=== PATIENT | female | born 1945 | race Caucasian/White ===

== ENCOUNTER 2018-09-15 15:08 | Emergency (ER) | payer MEDICARE, SELFPAY ==
[2018-09-15 15:13] VITALS: BP 112/64; PULSE 85; RESP 16; TEMP 37.1; O2SAT 98
--- NOTE | 2018-09-15 15:29 | DI.US_ITS ---
SYMPTOM/DIAGNOSIS: SWELLING, CYANOSIS, PAIN LEFT LOWER EXTREMITY ULTRASOUND: There is hypoechoic thrombus seen within the left common femoral vein and popliteal vein. There is also echogenic thrombus seen in the peroneal vein of the left lower extremity. There is extension of thrombus into the proximal mid greater saphenous vein. IMPRESSION: Extensive deep venous thrombosis of the left lower extremity. Superficial thrombophlebitis.
--- NOTE | 2018-09-15 15:31 | ED.GENADUL_ITS ---
Discharge Plan Disposition Patient Disposition: [facility] [place] Condition: Improving Discharge Details Chief Complaint: Nk/Back Pain Clinical Impression: DVT of lower limb, acute Primary Care Provider: Katerina Ty ED Provider: Faheem Brooks Home Meds and New Rx's Prescriptions: No Action diltiazem HCl 180 MG tablet extended release 24 hr 180 mg PO DAILY RF: 0 ascorbic acid (vitamin C) [Vitamin C] 1,000 MG tablet 1,000 mg PO DAILY RF: 0 vitamin E 200 UNIT capsule 200 unit PO DAILY RF: 0 Van's wort 300 MG capsule 300 mg PO DAILY RF: 0 ginkgo biloba 120 MG tablet 120 mg PO DAILY RF: 0 omega-3 fatty acids-fish oil [Fish Oil] 1 EACH capsule 1 ea PO DAILY RF: 0 ibuprofen 800 MG tablet 800 mg PO Q6H PRN PRNQty: 20 RF: 0 Medical Decision Making 72-year-old female presents from home. She states that she got out out of her recliner after a nap yesterday and while flexing at the waist, had the abrupt onset of severe left low back pain that radiated to her buttock, groin, leg. She states that she took ibuprofen and Tylenol for this with some improvement. She states that today she noticed that her left lower extremity had become swollen/edematous/cyanotic. Her back pain is improving. She does not have chest pain or shortness of breath. Her vital signs are normal. Her exam is most notable for asymmetrical edema and cyanosis of the left lower extremity. Arterial pulses are intact on exam. 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 This does reveal massive DVT of the left lower extremity from the common femoral vein through the popliteal. Arterial flow is intact. The patient will note that she had rapidly progressive lower extremity swelling over the course of the day from waist to knee this morning and progressively through the calf this afternoon. Screening labs including coags, type and screen obtained. Heparin initiated. Patient did have some improvement in her cyanosis following heparin bolus. Case discussed with on-call vascular sugery at [facility], Dr Pina, and patient accepted in transfer. Lab Data Lab results reviewed: Yes I reviewed the patient's lab results. Laboratory Results - last 24 hr 09/15/18 09/15/18 09/15/18 16:30 16:30 16:30 WBC 9.79 RBC 4.78 Hgb 14.1 Hct 43.5 MCV 91.0 MCH 29.5 MCHC 32.4 RDW 14.7 H Plt Count 214 MPV 9.6 Immature Gran % 0.6 Neutrophils % 74.8 Lymphocytes % 11.7 Monocytes % 12.6 Eosinophils % 0.1 Basophils % 0.2 Absolute Neutrophils 7.32 H Absolute Lymphocytes 1.15 L Absolute Monocytes 1.23 H Absolute Eosinophils 0.01 Absolute Basophils 0.02 PT 9.5 INR 1.0 APTT 24.9 Sodium 134 L Potassium 3.7 Chloride 98 Carbon Dioxide 28.9 Anion Gap 7.1 BUN 15 Creatinine 0.97 Estimated GFR/1.73 m2 56.14 Glucose 108 H Calcium 9.0 Total Bilirubin 0.9 AST 15 ALT 26 Alkaline Phosphatase 98 Troponin I < 0.02 Total Protein 7.9 Albumin 3.4 Patient ABO/Rh Antibody Screen 09/15/18 16:30 WBC RBC Hgb Hct MCV MCH MCHC RDW Plt Count MPV Immature Gran % Neutrophils % Lymphocytes % Monocytes % Eosinophils % Basophils % Absolute Neutrophils Absolute Lymphocytes Absolute Monocytes Absolute Eosinophils Absolute Basophils PT INR APTT Sodium Potassium Chloride Carbon Dioxide Anion Gap BUN Creatinine Estimated GFR/1.73 m2 Glucose Calcium Total Bilirubin AST ALT Alkaline Phosphatase Troponin I Total Protein Albumin Patient ABO/Rh O Positive Antibody Screen Negative ECG Data Attestation: I personally reviewed and interpreted this ECG (s) as follows: Interpretation: Normal sinus rhythm, rate of 87, QRS is narrow, no ST segment elevation, nonspecific ST changes in the inferolateral leads HPI General Mode of arrival: ambulatory . Date/Time Provider Initiated Documentation: 09/15/18 15:15 . Limitations to Documentation: no limitations . Information obtained by: patient . History of Present Illness 72 year old F presents to the emergency department with the chief complaint of Low back pain and left leg swelling, described as moderate, Quality is described as dull and constant, and is localized to the left and lower extremity. Patient reports no radiation. Patient started experiencing this day(s) and it has been constant. No relieving factors improve symptom(s), No exacerbating factors reported . Patient notes denies chest pain, shortness of breath, syncope and weakness. Patient did receive the following treatments prior to arrival, NSAID Related Data Home Medications Medication Instructions Recorded Confirmed diltiazem HCl 180 mg PO DAILY 12/22/16 11/29/17 Van's wort 300 mg PO DAILY 01/04/17 11/29/17 ascorbic acid (vitamin C) [Vitamin 1,000 mg PO DAILY 01/04/17 11/29/17 C] ginkgo biloba 120 mg PO DAILY 01/04/17 11/29/17 ibuprofen 800 mg PO Q6H PRN PRN #20 tablet 01/04/17 11/29/17 omega-3 fatty acids-fish oil [Fish 1 ea PO DAILY 01/04/17 11/29/17 Oil 1,000 mg Capsule] vitamin E 200 unit PO DAILY 01/04/17 11/29/17 Previous Rx's Medication Instructions Recorded ibuprofen 800 mg PO Q6H PRN PRN #20 tablet 01/04/17 Allergies Allergy/AdvReac Type Severity Reaction Status Date / Time Sulfa (Sulfonamide AdvReac Severe Nausea & Unverified 09/15/18 15:18 Antibiotics) vomiting narcotics AdvReac Severe Low drug Uncoded 09/15/18 15:18 tolerance foods made from mold AdvReac Intermediate rash Uncoded 09/15/18 15:18 General Stated Complaint: Nk/Back Pain HERBERT: 3 Review of Systems Review of Systems Denies chest pain or shortness of breath. States that her low back pain began when getting out of her recliner yesterday. Today she developed the left lower extremity swelling. No motor weakness. No numbness or tingling. Patient states her only medication is that is prescribed his diltiazem for hypertension. She states that she sat in my recliner for most of the winter as she was unable to get away to [place]. 8 systems reviewed and otherwise negative [facility] Social History Smoking/Tobacco Use Status: Never Drug use: Never Substance use type: does not use Do you feel safe at home: Yes Do you feel safe in your relationship?: Yes Exam Narrative Exam Narrative: GEN: awake, alert, oriented 3. Pleasant, well groomed, interactive. HEAD: Normocephalic, atraumatic ENT: Mucous membranes moist, oropharynx unremarkable, External ear exam un remarkable EYES: PERRL, EOMI NECK: Full ROM, no NISHA, no menigismus CHEST/RESP: Nontender, clear to auscultation bilateral, no wheeze/rhonchi/rales CARDIOVASCULAR: RRR, no murmur, rub jessica. 2+ Rad pulse bilateral ABDOMEN: Soft, nontender, no mass. +Bowel sounds Back: Tender at left sciatic notch/left SI joint. EXT: Full ROM, left lower extremity is with asymmetric tense edema, decreased capillary refill with cyanosis present. Palpable dorsalis pedis pulses bilaterally. Palpable femoral pulses bilaterally. Neuro: Grossly normal neurologic exam, conversant, interactive. Psych: Speech fluent, thoughts congruent, affect normal Course Vital Signs Temperature 37.1 C 09/15/18 15:13 Pulse 85 09/15/18 15:13 Respiratory Rate 16 09/15/18 15:13 Blood Pressure 112/64 09/15/18 15:13 Pulse Oximetry 98 09/15/18 15:13 Temperature 37.1 C 09/15/18 15:13 Pulse 85 09/15/18 15:13 Respiratory Rate 16 09/15/18 15:13 Respiratory Effort Non-Labored 09/15/18 15:16 Blood Pressure 112/64 09/15/18 15:13 Blood Pressure Position Sitting 09/15/18 15:13 Pulse Oximetry 98 09/15/18 15:13 Oxygen Delivery Method Room Air 09/15/18 15:13 Oxygen Flow Rate 0 09/15/18 15:13 Pain Level 8 09/15/18 15:13
[2018-09-15 15:52] VITALS: RESP 14
--- NOTE | 2018-09-15 16:27 | DI.VRAD_ITS ---
Addendum created by Stas Perez MD on 09/15/2018 4:31:13 PM EDT I personally discussed the findings with CHETNA AHN on 09/15/2018 at 4:31 PM EDT by telephone conference call. Initial report created on 09/15/2018 4:26:57 PM EDT EXAM: US Duplex Left Lower Extremity Veins, Limited EXAM DATE/TIME: 09/15/2018 4:16 PM CLINICAL HISTORY: 72 years old, female; Pain and signs and symptoms; Swelling (edema) of limb and other: Cyanosis; Lower extremity, left; Leg, lower TECHNIQUE: Imaging protocol: Real-time Duplex ultrasound of the Left Lower Extremity with 2-D bai scale, color Doppler flow and spectral waveform analysis. Limited exam focused on the left lower extremity veins. COMPARISON: No relevant prior studies available. FINDINGS: Left deep veins: Echogenic thrombus within the left common femoral vein, femoral vein, and popliteal vein. Echogenic thrombus within a peroneal vein. Left superficial veins: Echogenic thrombus within the proximal and mid greater saphenous vein. Soft tissues: Unremarkable. IMPRESSION: Exam positive for deep venous thrombosis and superficial thrombophlebitis. Dictated and Authenticated by: Stas Perez MD. Ordering:ARIELA Mayen MD
[2018-09-15 16:36] LABS: Abs Immature Grans 0.06 k/cumm (0.0-0.09); Absolute Basophil Count 0.02 k/cumm (0.0-0.2); Absolute Eosinophil Count 0.01 k/cumm (0.0-0.7); Absolute Lymphocyte Count 1.15 k/cumm (1.2-3.4); Absolute Monocyte Count 1.23 k/cumm (0.11-0.7); Absolute Neutrophil Count 7.32 k/cumm (1.2-6.7); Basophils % 0.2; Eosinophils % 0.1; HCT 43.5 % (36.0-46.0); HGB 14.1 g/dL (12.0-15.5); Immature Grans % 0.6; Lymphocytes % 11.7; Mean Corp. HGB Concentration 32.4 g/dL (32.0-36.0); Mean Corpuscular Hemoglobin 29.5 pg (27.0-33.0); Mean Platelet Volume 9.6 fL (8.0-11.0); Monocytes % 12.6; Neutrophils % 74.8; Platelet Count 214 x1000/uL (130-400); RBC 4.78 m/cumm (4.00-5.20); RBC Distribution Width 14.7 % (11.7-14.6); White Blood Cell Count 9.79 k/cumm (4.4-10.8)
[2018-09-15 16:48] LABS: PTT Activated 24.9 sec (21.0-31.4); Prothrombin Time 9.5 sec (9.3-11.0)
[2018-09-15 16:51] LABS: ALT 26 U/L (12-78); AST 15 U/L (15-37); Albumin 3.4 g/dL (3.4-5.0); Alkaline Phosphatase 98 U/L (46-116); Anion Gap 7.1 mmol/L (3-11); BUN 15 mg/dL (7-18); Bilirubin, Total 0.9 mg/dL (0.2-1.0); CO2 28.9 mmol/L (21.0-32.0); CREATININE 0.97 mg/dL (0.55-1.02); Chloride 98 mmol/L (98-107); Estimated GFR 56.14 (mL/min/1.73m2); Glucose 108 mg/dL (70-100); Potassium 3.7 mmol/L (3.5-5.1); Sodium 134 mmol/L (136-145); Total Protein 7.9 g/dL (6.4-8.2)
[2018-09-15 16:59] LABS: Troponin I < 0.02 ng/mL (0.00-0.06)
[2018-09-15 18:26] VITALS: BP 112/64; PULSE 85; RESP 14; TEMP 37.1; O2SAT 98
--- NOTE | 2018-09-15 18:47 | NUR.NOTE ---
attempted to call report to [facility]. spoke with Raul who said they were unable to take report from [phone] due to shift change. gave raul our number here for nurse to call and talk to Dr. Brooks with any questions.
== END 2018-09-15 18:08 | disposition short-term general hospital (02) ==
LOC: ER 17:39
PROVIDERS: Emergency Provider Emergency Medicine; PCP Family Medicine
DX: I82.412 Acute embolism and thrombosis of left femoral vein (principal); I82.432 Acute embolism and thrombosis of left popliteal vein
CPT/HCPCS: 80053; 86850; 86900; 86901; 96365; 99284; 84484; 85025; 85610; 85730; 93971